=== PATIENT | female | born 1990 | race Caucasian/White ===

== ENCOUNTER 2016-05-25 15:15 | Emergency (ER) | payer OTHER ==
[~2016-05-25] VITALS: Ht 165.1 cm; Wt 50.9 kg
[~2016-05-25 15:15] MED LIST: CHROMAGEN,1 CAPSULE PO; Fioricet,Esgic,Repan PO; Motrin PO; NATALCARE RX1 TABLE1 PO; PRENATAL TABLE1 EAC3 PO; PROMETHAZINE HC25 M1 PO; SUBOXONE 2 MG-1 EACH SL; Zofran PO
[2016-05-25 17:21] VITALS: BP 110/55
[2016-05-26] MEDS ORDERED: ZOLOFT25 MG PO (17:05)
[2016-05-26] MEDS ORDERED: PERCOCET 5/31 TABLET PO (18:32)
== END 2016-05-25 17:22 | disposition home or self-care (01) ==
LOC: EME 15:15
DX: S92.352A Displaced fracture of fifth metatarsal bone, left foot, initial encounter for closed fracture (principal); X50.9XXA Other and unspecified overexertion or strenuous movements or postures, initial encounter; Y93.02 Activity, running
CPT/HCPCS: 73630; 99281; 99283

== ENCOUNTER 2016-05-26 15:23 | Emergency (ER) | payer OTHER ==
[~2016-05-26] VITALS: Ht 165.1 cm; Wt 50.9 kg
[2016-05-26 15:27] VITALS: BP 111/68
[2016-05-26] MEDS ORDERED: ZOLOFT25 MG PO (17:05)
[2016-05-26] MEDS ORDERED: PERCOCET 5/31 TABLET PO (18:32)
== END 2016-05-26 18:45 | disposition home or self-care (01) ==
LOC: EME 15:23
PROC: 2W3TX1Z Immobilization of Left Foot using Splint (ICD-10-PCS; principal; 2016-05-26)
DX: S92.352A Displaced fracture of fifth metatarsal bone, left foot, initial encounter for closed fracture (principal); S90.32XA Contusion of left foot, initial encounter; X50.9XXD Other and unspecified overexertion or strenuous movements or postures, subsequent encounter; Y93.02 Activity, running
CPT/HCPCS: 73700; 99281; 99284

== ENCOUNTER 2017-09-28 18:57 | Emergency (ER) | payer OTHER ==
[~2017-09-28] VITALS: Ht 165.1 cm; Wt 54.8 kg
[~2017-09-28 18:57] MED LIST changes: +PERCOCET 5/31 TABLET PO; +ZOLOFT25 MG PO
[2017-09-28 19:37] LABS: HEMATOCRIT 38.6 % (36.0-46.0); HEMOGLOBIN 12.9 G/DL (11.9-15.5); MCH 28.9 PG (29.0-34.0); MCHC 33.4 G/DL (30.0-36.0); MCV 86.5 FL (83-99); PLATELET COUNT 163 K/uL (156-360); RBC DIS.WIDTH-CV 12.3 % (11.8-14.6); RED BLOOD COUNT 4.46 M/uL (3.80-5.20); WHITE BLOOD COUNT 6.7 K/uL (4.1-10.2)
[2017-09-28 19:48] LABS: ALBUMIN 4.3 g/dL (3.2-4.8); CHLORIDE 107 mEq/L (99-109); POTASSIUM 3.9 mEq/L (3.7-5.4); SODIUM 142 mEq/L (136-147)
[2017-09-28 19:50] LABS: GLUCOSE 98 mg/dL (70-99); TOTAL PROTEIN 6.9 g/dL (6.4-8.3)
[2017-09-28 19:52] LABS: TOTAL BILIRUBIN 0.4 mg/dL (0.0-1.0)
[2017-09-28 19:54] LABS: ALKALINE PHOSPHATASE 57 IU/L (3-129); CREATININE 0.7 mg/dL (0.6-1.3); GFR ESTIMATE (CALCULATED) > 59 mL/min/
[2017-09-28 19:55] LABS: AST (GOT) 22 IU/L (2-34); UREA NITROGEN (BUN) 9 mg/dL (9-23)
[2017-09-28 19:57] LABS: ALT (GPT) 17 IU/L (3-49)
[2017-09-28 20:06] LABS: QUANTITATIVE HCG < 4.0 MIU/ML
[2017-09-28 20:37] LABS: LIPASE 18 U/L (1.0-51.0)
[2017-09-28 21:03] LABS: APPEARANCE CLOUDY ((CLEAR)); BILIRUBIN NEGATIVE; BLOOD NEGATIVE; COLOR YELLOW ((YELLOW)); GLUCOSE (STRIP) NEGATIVE; KETONES NEGATIVE; LEUKOCYTES NEGATIVE; NITRITE NEGATIVE; PROTEIN (STRIP) NEGATIVE; SPECIFIC GRAVITY 1.021 (1.000-1.030)
[2017-09-28 21:16] LABS: AMORPHOUS PHOSPHATE CRYSTALS 4+; BACTERIA 1+ /HPF; EPITHELIAL CELLS 2+ /HPF; MUCUS 1+ /LPF; RED BLOOD CELLS NONE SEEN /HPF (0-5); UCUL ADDED? NO; WHITE BLOOD CELLS NONE SEEN /HPF (0-5)
[2017-09-28] MEDS ORDERED: ZANTAC150 MG PO (22:12)
[2017-09-28 22:16] VITALS: BP 122/85
== END 2017-09-28 22:17 | disposition home or self-care (01) ==
LOC: EME 18:57
DX: R10.9 Unspecified abdominal pain (principal); Z79.891 Long term (current) use of opiate analgesic
CPT/HCPCS: 74177; 80053; 81003; 83690; 84702; 85027; 99281; 99285